=== PATIENT | female | born 1995 | race Caucasian/White ===

== ENCOUNTER 2022-10-20 00:55 | Inpatient (IN) | payer OTHER ==
[~2022-10-20] VITALS: Ht 154.9 cm; Wt 106.8 kg
[2022-10-20] VITALS (10 sets, daily range): BP systolic 137–162; BP diastolic 61–104; O2SAT 100
[2022-10-20] MEDS ORDERED: PRENTAB9 PO (01:47)
[2022-10-20] MEDS ORDERED: HOME MED LIST COMPLETE! XX SCH (01:50)
[2022-10-20] MEDS ORDERED: LIDOCAINE 1% MDV 20ML VIAL INFIL PRN (01:55)
[2022-10-20] MEDS ORDERED: OXYTOCIN INJ 10UNITS/ML 1ML VIAL IV PRN (01:55)
[2022-10-20] MEDS ORDERED: OXYTOCIN INJ 10UNITS/ML 1ML VIAL IM PRN (01:55)
[2022-10-20] MEDS ORDERED: OXYTOCIN DRIP 30 UNITS in IV 1 EA IV PRN ×6 (01:55)
[2022-10-20] MEDS ORDERED: TRANEXAMIC ACID INJection 1,000 MG in NS 100 ML IV PRN (01:55)
[2022-10-20] MEDS ORDERED: OXYTOCIN DRIP 30 UNITS in IV 1 EA IV SCH (01:55)
[2022-10-20] MEDS ORDERED: CARBOPROST TROMETHAMINE 250 MCG/ML AMP IM PRN (01:55)
[2022-10-20] MEDS ORDERED: LR 1,000 ML IV SCH (01:55)
[2022-10-20] MEDS ORDERED: METHYLERGONOVINE MALEATE 0.2MG/ML 1ML VIAL IM PRN (01:55)
[2022-10-20 02:40] LABS: HEMATOCRIT 39.1 % (36.0-47.0); MEAN CORPUSCULAR HEMOGLOBIN 29.5 pg (27.0-33.0); MEAN CORPUSCULAR HGB CONC 33.2 g/dl (32.0-36.5); MEAN CORPUSCULAR VOLUME 88.7 fl (80.0-96.0); PLATELET COUNT, AUTOMATED 233 10^3/uL (150-450); RED BLOOD COUNT 4.41 10^6/uL (4.00-5.40); WHITE BLOOD COUNT 17.5 10^3/uL (4.0-10.0)
[2022-10-20] MEDS ORDERED: FENTANYL/ROPIVACAINE/NACL BAG 100 ML EPIDURAL SCH (02:50)
[2022-10-20] MEDS ORDERED: ePHEDrine SULFATE 25 MG/5 ML(5MG/ML) SYRINGE IVP PRN (02:50)
[2022-10-20] MEDS ORDERED: EPIDURAL/PCA KEYS XX PRN (02:50)
[2022-10-20] MEDS ORDERED: diphenhydrAMINE 50MG/ML VIAL IV PRN (02:50)
[2022-10-20] MEDS ORDERED: ONDANSETRON 4MG 2ML VIAL IV PRN (02:50)
[2022-10-20] MEDS ORDERED: NALOXONE INJ 0.4MG/1ML VIAL IV PRN (02:50)
[2022-10-20] MEDS ORDERED: LR 500 ML IV PRN (02:50)
[2022-10-20 03:02] LABS: LDH LACTATE DEHYDROGENASE 244 U/L (120-246)
[2022-10-20 03:03] LABS: ALT/SGPT 16 U/L (7.0-40); AST/SGOT 20 U/L (<34); BILIRUBIN,TOTAL 0.2 MG/DL (0.3-1.2); CREATININE FOR GFR 0.54 MG/DL (0.55-1.30); GLOMERULAR FILTRATION RATE > 60.0 (>60)
[2022-10-20 03:39] LABS: URIC ACID 7.1 MG/DL (3.1-7.8)
[2022-10-20 04:22] LABS: CORD GAS ABE V -6.8; CORD GAS HCO3 V 24.8 MMOL/L; CORD GAS O2 SAT V 28.8 %; CORD GAS PCO2 V 74.9 mmHg; CORD GAS PH V 7.138 UNITS; CORD GAS PO2 V 19.8 mmHg; CORD GAS SBC V 17.2 MMOL/L; CORD GAS TCO2 V 27.1 MMOL/L
[2022-10-20 04:26] LABS: CORD GAS O2 SAT A < 15.0 %
[2022-10-20 04:29] LABS: CORD GAS ABE A -9.7; CORD GAS HCO3 A 23.4 MMOL/L; CORD GAS PCO2 A 86.2 mmHg; CORD GAS PH A 7.052 UNITS; CORD GAS PO2 A 11.7 mmHg; CORD GAS TCO2 A 26.1 MMOL/L
[2022-10-20] MEDS ORDERED: ACETAMINOPHEN TAB 650MG DOSE (2X325MG) PO PRN (05:35)
[2022-10-20] MEDS ORDERED: IBUPROFEN 600MG TAB PO PRN (05:35)
[2022-10-20] MEDS ORDERED: DIBUCAINE 1% OINTMENT 30GM TOP PRN (05:35)
[2022-10-20] MEDS ORDERED: METHYLERGONOVINE MALEATE 0.2 MG TAB PO PRN (05:35)
[2022-10-20] MEDS ORDERED: RHOGAM 300MCG (1500IU) INJ IM SCH (05:35)
[2022-10-20] MEDS: IBUPROFEN 800 MG TAB PO PRN ×3 (05:44→22:25)
[2022-10-20 05:46] LABS: CREATININE,RANDOM URINE 100.1 MG/DL
[2022-10-20 05:55] LABS: TOTAL PROTEIN,RANDOM URINE 167.5 MG/DL (0.0-14.0)
[2022-10-20] MEDS: ACETAMINOPHEN 500 MG TAB PO PRN ×3 (09:07→22:23)
[2022-10-20] MEDS: PRENATAL VITAMINS CHEWABLE TABLET PO SCH (09:08)
[2022-10-20] MEDS: DOCUSATE SODIUM 100MG CAPSULE PO PRN (20:05)
[2022-10-21 06:00] VITALS: BP 131/64
[2022-10-21] MEDS: PRENATAL VITAMINS CHEWABLE TABLET PO SCH (08:12)
[2022-10-21] MEDS: IBUPROFEN 800 MG TAB PO PRN ×2 (08:13→16:53)
[2022-10-21] MEDS: ACETAMINOPHEN 500 MG TAB PO PRN ×3 (08:13→20:43)
[2022-10-21 17:54] VITALS: BP 119/83; O2SAT 98
[2022-10-21] MEDS: DOCUSATE SODIUM 100MG CAPSULE PO PRN (20:43)
[2022-10-22] MEDS: IBUPROFEN 800 MG TAB PO PRN (00:37)
[2022-10-22 06:00] VITALS: BP 126/60; O2SAT 98
[2022-10-22] MEDS: ACETAMINOPHEN 500 MG TAB PO PRN (07:47)
[2022-10-22] MEDS ORDERED: MEASLES,MUMPS,RUBELLA VACCINE INJ (MMR-II) SC.IMMUN ONE (09:00)
== END 2022-10-22 13:25 | disposition home or self-care (01) | DRG 807 ==
LOC: M LDO 00:55 → M LDI 01:40 → M OBS 06:04
PROVIDERS: ADMIT Obstetrics & Gynecology; ATTEND Obstetrics & Gynecology
PROC: 10D07Z6 Extraction of Products of Conception, Vacuum, Via Natural or Artificial Opening (ICD-10-PCS; principal; 2022-10-20)
PROC: 0KQM0ZZ Repair Perineum Muscle, Open Approach (ICD-10-PCS; 2022-10-20)
DX: O13.4 Gestational [pregnancy-induced] hypertension without significant proteinuria, complicating childbirth (principal); Z37.0 Single live birth; Z3A.39 39 weeks gestation of pregnancy; O26.00 Excessive weight gain in pregnancy, unspecified trimester; Z68.31 Body mass index [BMI] 31.0-31.9, adult; O24.429 Gestational diabetes mellitus in childbirth, unspecified control; O70.1 Second degree perineal laceration during delivery